=== PATIENT | female | born 1980 | race Caucasian/White ===

== ENCOUNTER 2018-08-11 15:17 | Emergency (ER) | payer OTHER ==
--- NOTE | 2018-08-11 16:12 | ERPHSYRPT ---
- History of Present Illness Time Seen by Provider: 08/11/18 16:03 Source: patient, family Exam Limitations: no limitations Patient Subjective Stated Complaint: pt states has had dizziness all day, vomiting and diarrhea started today. has had problems with dizziness in the past couple of months occassionally but usually goes away. dizziness has continued all day today, complaining of being off balance. states went to doctor last week to have labs done thinking she may have low iron since she is always cold. but labs were normal. pt states she is pretty healthy, no other medical problems. runs 5 times a week. Triage Nursing Assessment: pt present to rm 8 in w/c, assist of 2 to bed, A/O, speech clear. no c/o pain. c/o dizziness, has had nausea and vomiting, diarrhea today. drank OJ at 330am. took a meclizine this am did not help the dizziness. 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 stood with assist from w/c. pt denies abd pain or disc. Physician History: The patient is a 37-year-old female with family complaining that she was dizzy when she woke up this morning. She felt like the room was spinning when she's got up from bed. She is been mainly laying in bed or on the bathroom floor to help with the dizziness. When she stands up to walk she starts to lean to the right. She has had nausea, vomiting, and diarrhea all day. She took some meclizine this morning that did not help. She has intermittent dizziness for the past few months. Usually the dizziness goes away later in the day. She denies headache or abdominal pain. She denies fever or chills. She does not take any prescription medicines. Timing/Duration: today, sudden, worse Severity: severe Character of Deficits: none Deficits: off balance, decrease ability to walk Baseline/Normal Cognition: alert oriented x 3 Current Cognition: alert oriented x 3 Baseline Gait: walks w/o assistance Associated Symptoms: nausea, vomiting, trouble walking Allergies/Adverse Reactions: No Known Drug Allergies Allergy (Unverified 08/11/18 15:41) Hx Tetanus, Diphtheria Vaccination/Date Given: Yes Hx Influenza Vaccination/Date Given: No Hx Pneumococcal Vaccination/Date Given: No Immunizations Up to Date: Yes - Review of Systems Constitutional: No Symptoms Eyes: No Symptoms Ears, Nose, & Throat: No Symptoms Respiratory: No Cough, No Dyspnea Cardiac: No Chest Pain, No Edema, No Syncope Abdominal/Gastrointestinal: Nausea, Vomiting, Diarrhea, No Abdominal Pain Genitourinary Symptoms: No Dysuria Musculoskeletal: No Back Pain, No Neck Pain Skin: No Rash Neurological: Dizziness, Gait Changes Psychological: No Symptoms Endocrine: No Symptoms Hematologic/Lymphatic: No Symptoms Immunological/Allergic: No Symptoms All Other Systems: Reviewed and Negative - Past Medical History Pertinent Past Medical History: No Neurological History: No Pertinent History ENT History: No Pertinent History Cardiac History: No Pertinent History Respiratory History: No Pertinent History Endocrine Medical History: No Pertinent History Musculoskeletal History: No Pertinent History GI Medical History: No Pertinent History History: No Pertinent History Psycho-Social History: No Pertinent History Female Reproductive Disorders: No Pertinent History - Past Surgical History Past Surgical History: Yes Neuro Surgical History: No Pertinent History Cardiac: No Pertinent History Respiratory: No Pertinent History Gastrointestinal: No Pertinent History Genitourinary: No Pertinent History Musculoskeletal: No Pertinent History Female Surgical History: Tubal Ligation - Social History Smoking Status: Never smoker Exposure to second hand smoke: Yes Drug Use: none Patient Lives Alone: No - Female History Hx Now: No - Nursing Vital Signs Nursing Vital Signs: Initial Vital Signs Temperature 99.1 F 08/11/18 15:17 Pulse Rate 78 08/11/18 15:17 Respiratory Rate 18 08/11/18 15:17 Blood Pressure 134/92 08/11/18 15:17 O2 Sat by Pulse Oximetry 100 08/11/18 15:17 Pain Scale Pain Intensity 0 - Samir Coma Scale Best Eye Response (Samir): (4) open spontaneously Best Verbal Response (Samir): (5) oriented Best Motor Response ([place]): (6) obeys commands Samir Total: 15 - Physical Exam General Appearance: no apparent distress, alert Eye Exam: bilateral eye: PERRL, EOMI, other (The patient complains of extreme dizziness when change from a supine to an upright position quickly. There was extinction noted with the dizziness as a assess was repeated several times. 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: normal speech, PERRL, tongue midline Coordination/Gait: normal finger to nose, normal gait Motor/Sensory: no motor deficit Skin Exam: normal color, warm, dry, No rash SpO2 Interpretation: normal SpO2: 100 Oxygen Delivery: Room Air - CT Exams Head CT Interpretation: Negative, Tele-radiologist Report (per Dr Lewis), No/ Intracranial Hemorrhag Ordered Tests: Active Orders 24 hr Category Date Time Status Clean Catch Urine Specimen STAT Care 08/11/18 16:18 Active IV Insertion STAT Care 08/11/18 16:24 Active HEAD WITHOUT CONTRAST [CT] Stat Exams 08/11/18 16:19 Taken BMP Stat Lab 08/11/18 16:50 Completed CBC W DIFF Stat Lab 08/11/18 16:50 Completed HCG QUALITATIVE,SERUM Stat Lab 08/11/18 Completed Lactic Acid Stat Lab 08/11/18 16:46 Completed UA W/RFX UR CULTURE Stat Lab 08/11/18 16:27 Completed Medication Summary Discontinued Medications Generic Name Dose Route Start Last Admin Trade Name Freq PRN Reason Stop Dose Admin Sodium Chloride 1,000 mls @ 999 mls/hr 08/11/18 16:18 08/11/18 16:30 Sodium Chloride 0.9% 1000 Ml IV 08/11/18 17:18 999 mls/hr .Q1H1M STA Administration Sodium Chloride Confirm 08/11/18 16:29 Sodium Chloride 0.9% 1000 Ml Administered 08/11/18 16:30 Dose 1,000 mls @ ud .ROUTE .STK-MED ONE Ondansetron HCl 4 mg 08/11/18 16:18 08/11/18 16:30 Zofran 4 Mg/2 Ml Vial IV 08/11/18 16:19 4 mg STAT ONE Administration Ondansetron HCl Confirm 08/11/18 16:29 Zofran 4 Mg/2 Ml Vial Administered 08/11/18 16:30 Dose 4 mg .ROUTE .STK-MED ONE Lab/Rad Data: Laboratory Result Diagrams 08/11/18 16:50 08/11/18 16:50 Laboratory Results 1008/11/18 08/11/18 Range/Units Unknown 16:50 16:50 WBC 12.0 H (4.0-10.5) K/mm3 RBC 4.79 (4.1-5.4) M/mm3 Hgb 14.9 (12.0-16.0) gm/dl Hct 43.2 (35-47) % MCV 90.2 (78-100) fl MCH 31.1 (26-32) pg MCHC 34.5 (32-36) g/dl RDW 12.6 (11.5-14.0) % Plt Count 290 (150-450) K/mm3 MPV 10.2 H (6-9.5) fl Gran % 89.9 H (36.0-66.0) % Eos # (Auto) 0.01 (0-0.5) Absolute Lymphs (auto) 0.79 L (1.0-4.6) Absolute Monos (auto) 0.39 (0.0-1.3) Lymphocytes % 6.6 L (24.0-44.0) % Monocytes % 3.3 (0.0-12.0) % Eosinophils % 0.1 (0.00-5.0) % Basophils % 0.1 (0.0-0.4) % Absolute Granulocytes 10.76 H (1.4-6.9) Basophils # 0.01 (0-0.4) Sodium 137 (137-145) mmol/L Potassium 4.0 (3.5-5.1) mmol/L Chloride 106 (98-107) mmol/L Carbon Dioxide 23 (22-30) mmol/L Anion Gap 12.8 (5-15) MEQ/L BUN 17 (7-17) mg/dL Creatinine 0.50 L (0.52-1.04) mg/dL Estimated GFR > 60.0 ML/MIN Glucose 105 (74-106) mg/dL Lactic Acid (0.4-2.0) Calcium 9.1 (8.4-10.2) mg/dL Serum , Qual NEGATIVE (Negative) Urine Color (YELLOW) Urine Appearance (CLEAR) Urine pH (5-6) Ur Specific [place] (1.005-1.025) Urine Protein (Negative) Urine Ketones (NEGATIVE) Urine Blood (0-5) [place]/ul Urine Nitrite (NEGATIVE) Urine Bilirubin (NEGATIVE) Urine Urobilinogen (0-1) mg/dL Ur Leukocyte Esterase (NEGATIVE) Urine WBC (Auto) (0-5) /HPF Urine RBC (Auto) (0-2) /HPF U Epithel Cells (Auto) (FEW) /HPF Urine Bacteria (Auto) (NEGATIVE) /HPF Urine Mucus (Auto) (NEGATIVE) /HPF Urine Culture Reflexed (NO) Urine Glucose (NEGATIVE) mg/dL 08/11/18 08/11/18 Range/Units 16:46 16:27 WBC (4.0-10.5) K/mm3 RBC (4.1-5.4) M/mm3 Hgb (12.0-16.0) gm/dl Hct (35-47) % MCV (78-100) fl MCH (26-32) pg MCHC (32-36) g/dl RDW (11.5-14.0) % Plt Count (150-450) K/mm3 MPV (6-9.5) fl Gran % (36.0-66.0) % Eos # (Auto) (0-0.5) Absolute Lymphs (auto) (1.0-4.6) Absolute Monos (auto) (0.0-1.3) Lymphocytes % (24.0-44.0) % Monocytes % (0.0-12.0) % Eosinophils % (0.00-5.0) % Basophils % (0.0-0.4) % Absolute Granulocytes (1.4-6.9) Basophils # (0-0.4) Sodium (137-145) mmol/L Potassium (3.5-5.1) mmol/L Chloride (98-107) mmol/L Carbon Dioxide (22-30) mmol/L Anion Gap (5-15) MEQ/L BUN (7-17) mg/dL Creatinine (0.52-1.04) mg/dL Estimated GFR ML/MIN Glucose (74-106) mg/dL Lactic Acid 0.9 (0.4-2.0) Calcium (8.4-10.2) mg/dL Serum , Qual (Negative) Urine Color YELLOW (YELLOW) Urine Appearance SLIGHTLY CLOUDY (CLEAR) Urine pH 5.0 (5-6) Ur Specific [place] 1.023 (1.005-1.025) Urine Protein NEGATIVE (Negative) Urine Ketones SMALL (NEGATIVE) Urine Blood NEGATIVE (0-5) [place]/ul Urine Nitrite NEGATIVE (NEGATIVE) Urine Bilirubin NEGATIVE (NEGATIVE) Urine Urobilinogen NEGATIVE (0-1) mg/dL Ur Leukocyte Esterase NEGATIVE (NEGATIVE) Urine WBC (Auto) 3-5 (0-5) /HPF Urine RBC (Auto) 0-2 (0-2) /HPF U Epithel Cells (Auto) RARE (FEW) /HPF Urine Bacteria (Auto) RARE (NEGATIVE) /HPF Urine Mucus (Auto) SLIGHT (NEGATIVE) /HPF Urine Culture Reflexed NO (NO) Urine Glucose NEGATIVE (NEGATIVE) mg/dL - Progress Progress: improved Counseled pt/family regarding: lab results, diagnosis, need for follow-up, rad results - Departure Time of Disposition: 18:40 Departure Disposition: Home Clinical Impression: Gastroenteritis, BPPV (benign paroxysmal positional vertigo) Condition: Stable Critical Care Time: No Referrals: JOHAN PIERRE [Primary Care Provider] - Additional Instructions: You have gastroenteritis and BPPV you were given Zofran 4 mg and fluids by IV in the ER. He also was seen by physical therapy for treatment of the BPPV. Take Zofran 4 mg ODT every 6 hours as needed for nausea and vomiting. Stay well hydrated. Stay home from work tomorrow lesser feeling much better. You may also need another treatment for the BPPV. Follow-up with your primary medical doctor as needed. Prescriptions: Ondansetron ODT 4 MG [Zofran Odt 4 mg] 1 tab PO Q6H PRN PRN #10 tab.rapdis PRN Reason: Nausea/Vomiting
[2018-08-11] MEDS ORDERED: Sodium Chloride 0.9% 1000 ML 1,000 ML IV STA (16:18)
[2018-08-11] MEDS ORDERED: Zofran 4 MG/2 ML VIAL IV ONE (16:18)
[2018-08-11] MEDS ORDERED: Sodium Chloride 0.9% 1000 ML 1,000 ML ONE (16:29)
[2018-08-11] MEDS ORDERED: Zofran 4 MG/2 ML VIAL ONE (16:29)
[2018-08-11 16:53] LABS: BASOPHIL % 0.1 % (0.0-0.4); Basophil (Absolute #) 0.01 (0-0.4); Eosinophil % 0.1 % (0.00-5.0); Eosinophil (Absolute #) 0.01 (0-0.5); Granulocyte Absolute (ANC) 10.76 (1.4-6.9); Granulocytes % 89.9 % (36.0-66.0); Hematocrit 43.2 % (35-47); Hemoglobin 14.9 gm/dl (12.0-16.0); Lymphocyte (Absolute #) 0.79 (1.0-4.6); Lymphocytes % 6.6 % (24.0-44.0); Mean Cell Volume 90.2 fl (78-100); Mean Corpuscular Hemoglobin 31.1 pg (26-32); Mean Corpuscular Hgb Concent. 34.5 g/dl (32-36); Mean Platelet Volume 10.2 fl (6-9.5); Monocyte (Absolute #) 0.39 (0.0-1.3); Monocytes % 3.3 % (0.0-12.0); Platelet Count 290 K/mm3 (150-450); Red Blood Count 4.79 M/mm3 (4.1-5.4); Red Cell Distribution Width 12.6 % (11.5-14.0)
[2018-08-11 17:08] LABS: Appearance SLIGHTLY CLOUDY (CLEAR); Bilirubin NEGATIVE (NEGATIVE); Blood NEGATIVE Ery/ul (0-5); Glucose NEGATIVE (NEGATIVE); Ketones SMALL (NEGATIVE); Leukocyte Esterase NEGATIVE (NEGATIVE); Nitrite NEGATIVE (NEGATIVE); Protein,Urine Dip NEGATIVE (Negative); Specific Gravity 1.023 (1.005-1.025); Urobilinogen NEGATIVE mg/dL (0-1)
[2018-08-11 17:15] VITALS: BP 132/85; PULSE 75; O2SAT 100
[2018-08-11 17:29] LABS: ANION GAP 12.8 MEQ/L (5-15); BLOOD UREA NITROGEN 17 mg/dL (7-17); CHLORIDE 106 mmol/L (98-107); Calcium 9.1 mg/dL (8.4-10.2); Carbon Dioxide 23 mmol/L (22-30); Glucose 105 mg/dL (74-106); SODIUM 137 mmol/L (137-145)
--- NOTE | 2018-08-12 08:42 | XRAY ---
Indication: Dizziness and nausea. Multiple contiguous axial images obtained through the head without contrast. Comparison: None Normal appearing brain parenchyma, ventricles, and bony calvarium. Visualized paranasal sinuses and mastoid air cells are clear. Impression: Normal CT head without contrast exam. CT DI 70.87
== END 2018-08-11 19:23 | disposition home or self-care (01) ==
LOC: ED 15:17
DX: K52.9 Noninfective gastroenteritis and colitis, unspecified (principal); H81.10 Benign paroxysmal vertigo, unspecified ear
CPT/HCPCS: 36415; 70450; 80048; 81001; 83605; 84703; 85025; 96360; 96374; 99284; J2405